=== PATIENT | female | born 1945 | race Caucasian/White ===

== ENCOUNTER → 2021-05-26 | Outpatient (CLI) | payer MEDICARE ==
[~2021-05-26] MED LIST: ALL DAY ALLERGY10 M2 PO; ASPIRIN EC81 MG PO; CARDIZEM CD300 MG PO; CILOSTAZOL50 MG PO; CRESTOR20 MG PO; EFFER-K 10 MEQ10 MEQ PO; ELIQUIS5 MG PO; FOSAMAX70 MG PO; KLONOPIN0.5 MG PO; LANTUS INS100 UTS/M1 SQ; LASIX20 MG PO; NEXIUM40 MG PO; PROZAC20 MG PO; SYNTHROID75 MCG PO; TOPAMAX50 MG PO; ZANTAC150 MG PO; ZESTRIL20 MG PO
== END ==
LOC: HEART CORB 09:00
DX: I48.91 Unspecified atrial fibrillation (principal); R07.9 Chest pain, unspecified; I49.5 Sick sinus syndrome; I11.9 Hypertensive heart disease without heart failure; I27.20 Pulmonary hypertension, unspecified; I08.8 Other rheumatic multiple valve diseases
CPT/HCPCS: 93306